=== PATIENT | female | born 1980 | race Two or more races ===

== ENCOUNTER 2018-10-16 03:25 | Emergency (ER) | payer OTHER, MEDICAID ==
[~2018-10-16] VITALS: Ht 167.6 cm; Wt 108.9 kg
--- NOTE | 2018-10-16 03:35 | NUR ---
BIBSELF FROM HOME. AAOX4. NO SOB, BREATHING EVEN AND UNLABORED. NO N/V. C/O CHEST TIGHTNESS ON THE LEFT CHEST ,11/15, SINCE 6PM LAST NIGHT. DENIES ANY RADIATING PAIN. MD AT BEDSIDE FOR EVAL.
--- NOTE | 2018-10-16 03:55 | NUR ---
XRAY AT BEDSIDE
[2018-10-16] MEDS ORDERED: NITROGLYCERIN PACKET 1 GM PACKET ONE (03:56)
[2018-10-16] MEDS ORDERED: ASPIRIN 81 MG TAB.CHEW ONE (03:56)
[2018-10-16] MEDS ORDERED: ASPIRIN 81 MG TAB.CHEW PO ONE (04:00)
[2018-10-16] MEDS ORDERED: NITROGLYCERIN PACKET 1 GM PACKET TD ONE (04:00)
--- NOTE | 2018-10-16 04:00 | NUR ---
Panchito hargrove in [facility] - 10/16/18 at 0422 by ROM BARBYAY AT BEDSIDE
--- NOTE | 2018-10-16 04:00 | NUR ---
EKG AT BEDSIDE
--- NOTE | 2018-10-16 04:07 | NUR ---
IV LINE OBTAINED ON R AC 20G. BLOOD DRAWN, HANDED TO CONVEYOR SYSTEM OPERATOR AT BEDSIDE.
[2018-10-16 04:12] LABS: BASOPHILS # (AUTO) 0.1 /CMM (0.0-0.2); BASOPHILS % (AUTO) 0.7 % (0.0-2.0); EOSINOPHILS % (AUTO) 2.8 % (0.0-6.0); HEMATOCRIT 36 % (33-45); HEMOGLOBIN 11.8 g/dL (11.5-14.8); LYMPHOCYTES % (AUTO) 24.1 % (20.0-44.0); MEAN CORPUSCULAR HGB CONC 33 g/dl (31.0-36.0); MEAN CORPUSCULAR VOLUME 77 fL (82-100); MONOCYTES # (AUTO) 0.5 /CMM (0.1-1.30); MONOCYTES % (AUTO) 5.7 % (2.0-12.0); NEUTROPHILS # (AUTO) 5.6 /CMM (1.8-8.9); NEUTROPHILS % (AUTO) 66.7 % (43.0-81.0); PLATELET COUNT (AUTO) 361 /CMM (150-450); RED BLOOD CELL COUNT(AUTO) 4.63 MIL/uL (4.0-5.2); WHITE BLOOD COUNT (AUTO) 8.3 K/uL (4.3-11.0)
[2018-10-16 04:23] LABS: CARBON DIOXIDE 31 mmol/L (21-32); CHLORIDE 103 mmol/L (98-107); CREATININE 0.9 mg/dL (0.6-1.3); GLUCOSE 92 mg/dL (74-106); POTASSIUM 3.8 mmol/L (3.5-5.1); SODIUM SERUM 139 mmol/L (136-145); UREA NITROGEN, BLOOD 12 mg/dL (7-18)
[2018-10-16 04:35] LABS: ALANINE AMINOTRANSFERASE 22 U/L (12-78); ALBUMIN 3.6 g/dL (3.4-5.0); ALKALINE PHOSPHATASE 79 U/L (46-116); ASPARTATE AMINOTRANSFERASE 14 U/L (15-37); B-TYPE NATRIURETIC PEPTIDE 17 PG/ML (0-125); BILIRUBIN,DIRECT 0.1 mg/dL (0.0-0.2); BILIRUBIN,TOTAL 0.3 mg/dL (0.2-1.0); TOTAL PROTEIN, SERUM 7.8 g/dL (6.4-8.2)
--- NOTE | 2018-10-16 06:02 | NUR ---
PT IN BED SLEEPING. AWAITING REDRAW FOR TROPONIN
--- NOTE | 2018-10-16 07:05 | NUR ---
LAB AT BEDSIDE FOR REPEAT TROPONIN
--- NOTE | 2018-10-16 07:15 | NUR ---
REPORT GIVEN TO PHIL VELOZ FOR STEPH
--- NOTE | 2018-10-16 07:16 | NUR ---
REPORT GIVEN TO PHIL VELOZ FOR STEPH
--- NOTE | 2018-10-16 08:10 | NUR ---
Patient discharged to home in stable condition. Written and verbal after care instructions given. Patient verbalizes understanding of instruction.IV removed. Catheter intact and site benign. Pressure and 4x4 applied to site. No bleeding noted.
[2018-10-16 08:12] VITALS: BP 128/67
== END 2018-10-16 08:13 | disposition home or self-care (01) ==
LOC: ER 03:27
DX: R07.89 Other chest pain (principal); F32.9 Major depressive disorder, single episode, unspecified
CPT/HCPCS: 36415; 71045-TC; 80048-TC; 80076-TC; 83880; 84484-TC; 84702-TC; 85025-TC